=== PATIENT | male | born 1960 | race Caucasian/White ===

== ENCOUNTER 2023-11-14 22:10 | Observation (INO) | payer OTHER ==
[2023-11-14 22:19] VITALS: BMI 33.0
[2023-11-15] MEDS ORDERED: ACETAMINOPHEN 1000 MG/100 ML BAG IVPB ONE (00:01)
[2023-11-15] MEDS ORDERED: ACETAMINOPHEN INJECTION 100 ML IVPB ONE (00:18)
[2023-11-15 00:38] LABS: BASO % 0.6 % (0-2.0); EOS % 1.5 % (0-4.5); HEMATOCRIT 44.7 % (35.4-49); HEMOGLOBIN 15.9 GM/dL (11.7-16.9); MCH 33.3 pg (25.7-33.7); MCHC 35.5 g/dl (32.0-35.9); MEAN CELL VOLUME 93.7 fl (80-96); MEAN PLT VOLUME 9.4 fl (7.5-11.1); MONO % 11.5 % (3.8-10.2); NEUT % 56.4 % (42.8-82.8); PLATELET COUNT 139 10^3/uL (134-434); RBC 4.77 M/mm3 (4.00-5.60); RDW 13.3 % (11.9-15.9); WHITE BLOOD COUNT 7.6 K/mm3 (4.0-10.0)
[2023-11-15 00:41] LABS: INR 1.11 (0.83-1.09); PROTHROMBIN TIME (PATIENT) 12.9 SEC (9.7-13.0)
[2023-11-15 00:44] LABS: ACTIVATED PTT 33.8 SECONDS (25.2-36.5)
[2023-11-15 01:00] LABS: POTASSIUM 3.2 mmol/L (3.5-5.1)
[2023-11-15 01:02] LABS: CALCIUM 8.2 mg/dL (8.5-10.1)
[2023-11-15 01:03] LABS: ALBUMIN 3.5 g/dl (3.4-5.0); BLOOD UREA NITROGEN 15.1 mg/dL (7-18); MAGNESIUM 2.4 mg/dL (1.8-2.4)
[2023-11-15 01:08] LABS: BILIRUBIN,TOTAL 0.4 mg/dL (0.2-1); TOT PROT 7.1 g/dl (6.4-8.2)
[2023-11-15] MEDS ORDERED: morphine CARPU-JECT 4 MG/1 ML DISP.SYRIN IVPUSH ONE (02:57)
[2023-11-15 04:12] VITALS: RESP 16
[2023-11-15] MEDS ORDERED: POTASSIUM CHLORIDE ORAL LIQUID 20 MEQ/15 ML PO ONE (05:13)
[2023-11-15] MEDS ORDERED: KCL 10 MEQ IVPB 10 MEQ/100 ML INFUS.BAG IVPB ONE ×2 (06:24→10:00)
[2023-11-15] MEDS ORDERED: POTASSIUM CHLORIDE ORAL LIQUID 20 MEQ/15 ML ONE (06:24)
[2023-11-15] MEDS: KCL 10 MEQ IVPB 10 MEQ/100 ML INFUS.BAG IVPB SCH ×2 (06:31→10:09)
[2023-11-15 06:51] LABS: BASO % 0.6 % (0-2.0); EOS % 1.8 % (0-4.5); HEMATOCRIT 44.6 % (35.4-49); HEMOGLOBIN 15.4 GM/dL (11.7-16.9); LYMPH % 28.9 % (8-40); MCH 32.5 pg (25.7-33.7); MCHC 34.5 g/dl (32.0-35.9); MEAN CELL VOLUME 94.2 fl (80-96); MONO % 10.8 % (3.8-10.2); NEUT % 57.9 % (42.8-82.8); PLATELET COUNT 139 10^3/uL (134-434); RBC 4.74 M/mm3 (4.00-5.60); RDW 13.1 % (11.9-15.9); WHITE BLOOD COUNT 6.4 K/mm3 (4.0-10.0)
[2023-11-15 07:08] LABS: POTASSIUM 3.6 mmol/L (3.5-5.1)
[2023-11-15 07:14] LABS: ALBUMIN 3.2 g/dl (3.4-5.0); CALCIUM 8.2 mg/dL (8.5-10.1); MAGNESIUM 2.1 mg/dL (1.8-2.4)
[2023-11-15 07:17] LABS: CREATININE 0.9 mg/dL (0.55-1.3); PHOSPHOROUS 2.7 mg/dL (2.5-4.9)
[2023-11-15 07:19] LABS: BILIRUBIN,TOTAL 0.4 mg/dL (0.2-1)
[2023-11-15] MEDS ORDERED: ACETAMINOPHEN 325 MG TABLET (FP) PO PRN (07:53)
[2023-11-15 08:04] LABS: URINE APPEARANCE CLEAR; URINE BILIRUBIN NEGATIVE (NEGATIVE); URINE COLOR YELLOW; URINE GLUCOSE (UA) NEGATIVE (NEGATIVE); URINE KETONE NEGATIVE (NEGATIVE); URINE LEUK ESTERASE NEGATIVE (NEGATIVE); URINE NITRITE NEGATIVE (NEGATIVE); URINE PROTEIN NEGATIVE (NEGATIVE)
[2023-11-15 08:10] LABS: COCAINE, UR NEGATIVE (NEGATIVE); METHADONE, UR NEGATIVE (NEGATIVE); PHENCYCLIDINE,URINE NEGATIVE (NEGATIVE); URINE BARBITURATES NEGATIVE (NEGATIVE); URINE BENZODIAZEPINES NEGATIVE (NEGATIVE)
[2023-11-15 08:11] LABS: OPIATES, URI NEGATIVE (NEGATIVE)
[2023-11-15 08:19] LABS: URINE AMPHETAMINES NEGATIVE (NEGATIVE)
[2023-11-15] MEDS: ENOXAPARIN NA (PORCINE) 40 MG/0.4 ML DISP.SYRIN SQ SCH (10:13)
[2023-11-15] MEDS ORDERED: FOLIC ACID 1 MG TABLET (FP) ONE (15:32)
[2023-11-15] MEDS: FOLIC ACID 1 MG TABLET (FP) PO SCH (16:56)
[2023-11-16] MEDS: OMEGA-3 ACID ETHYL ESTERS (FATTY-ACIDS) 1 GM CAPSULE (FP) PO SCH ×2 (00:48→09:26)
[2023-11-16 07:10] LABS: BASO % 0.3 % (0-2.0); EOS % 2.1 % (0-4.5); HEMATOCRIT 44.9 % (35.4-49); HEMOGLOBIN 15.5 GM/dL (11.7-16.9); LYMPH % 28.3 % (8-40); MCH 32.8 pg (25.7-33.7); MCHC 34.6 g/dl (32.0-35.9); MEAN CELL VOLUME 94.8 fl (80-96); MEAN PLT VOLUME 10.1 fl (7.5-11.1); NEUT % 59.3 % (42.8-82.8); PLATELET COUNT 141 10^3/uL (134-434); RBC 4.73 M/mm3 (4.00-5.60); RDW 13.2 % (11.9-15.9)
[2023-11-16 07:24] LABS: POTASSIUM 3.6 mmol/L (3.5-5.1)
[2023-11-16 07:31] LABS: CALCIUM 8.5 mg/dL (8.5-10.1)
[2023-11-16 07:32] LABS: ALBUMIN 3.2 g/dl (3.4-5.0); BLOOD UREA NITROGEN 15.4 mg/dL (7-18)
[2023-11-16 07:35] LABS: CREATININE 0.8 mg/dL (0.55-1.3)
[2023-11-16 07:37] LABS: BILIRUBIN,TOTAL 0.6 mg/dL (0.2-1); TOT PROT 7.1 g/dl (6.4-8.2)
[2023-11-16] MEDS ORDERED: ENOXAPARIN NA (PORCINE) 40 MG/0.4 ML DISP.SYRIN SQ ONE (09:15)
[2023-11-16] MEDS ORDERED: FOLIC ACID 1 MG TABLET (FP) ONE (09:15)
[2023-11-16] MEDS: ENOXAPARIN NA (PORCINE) 40 MG/0.4 ML DISP.SYRIN SQ SCH (09:26)
[2023-11-16] MEDS: FOLIC ACID 1 MG TABLET (FP) PO SCH (09:26)
[2023-11-16 10:54] VITALS: BP 128/85; PULSE 77; TEMP 97.6
[2023-11-16] MEDS ORDERED: FUROSEMIDE 20 MG TABLET (FP) PO SCH (18:00)
[2023-11-16] MEDS ORDERED: SPIRONOLACTONE 25 MG TABLET PO SCH (19:00)
[2023-11-16] MEDS ORDERED: GABAPENTIN 300 MG CAPSULE PO SCH (22:00)
== END 2023-11-16 12:51 | disposition home or self-care (01) ==
LOC: JER 22:10 → JERBED 11-15 02:58
PROVIDERS: ADMIT Internal Medicine; ATTEND Internal Medicine
PROC: 3E033NZ Introduction of Analgesics, Hypnotics, Sedatives into Peripheral Vein, Percutaneous Approach (ICD-10-PCS; principal; 2023-11-15)
PROC: 3E023GC Introduction of Other Therapeutic Substance into Muscle, Percutaneous Approach (ICD-10-PCS; 2023-11-15)
PROC: 3E033GC Introduction of Other Therapeutic Substance into Peripheral Vein, Percutaneous Approach (ICD-10-PCS; 2023-11-15)
DX: E66.3 Overweight (principal); R20.0 Anesthesia of skin; E78.5 Hyperlipidemia, unspecified; E03.8 Other specified hypothyroidism; Z90.49 Acquired absence of other specified parts of digestive tract
CPT/HCPCS: 0241U-QW; 36415; 70450-TC; 70552-TC; 72125-TC; 72131-TC; 72142-TC; 76705-TC; 80053; 80061; 80307; 81003; 82607; 82746; 83735; 84100; 84439; 84443; 84484; 85025; 85610; 85730; 86705; 86708; 87340; 87517; 87522; 93005; 93010; 93880-TC; 96365; 96372; 96375; 99285-25; G0378; J0131